=== PATIENT | female | born 1980 | race Caucasian/White ===

== ENCOUNTER 2016-07-10 17:04 | Emergency (ER) | payer OTHER ==
--- NOTE | ~2016-07-10 | EKG ---
PATIENT: AMANDA RODRÍGUEZ UNIT #: [id number] Ventricular Rate: 82 BPM Atrial Rate: 82 BPM P-R Interval: 156 ms QRS Duration: 82 ms Q-T Interval: 386 ms QTC Calculation(Bezet): 450 ms P [place]: 46 degrees Calculated R [place]: -20 degrees Calculated T [place]: 22 degrees Diagnosis Line: Normal sinus rhythm Diagnosis Line: Otherwise normal ECG Diagnosis Line: No significant change was found Diagnosis Line: Confirmed by QAMAR LAGOS MD ([id number]) on Diagnosis Line: 08/27/2016 4:03:57 PM INTERPRETING MD: [email or web address]
[~2016-07-10 17:04] MED LIST: ACETAMINOPHEN650 M1 PO; ALBUTEROL17 G1 IH; ALBUTEROL17 GM INH; ALLEGRA ALLERGY60 MG PO; AMOXICILLIN; AMOXICILLIN500 M1 PO; ATARAX PO; AUGMENTIN PO; AUGMENTIN875 MG PO; BACTRIM DS TABL1 TA1; BACTRIM DS TABL1 TA1 PO; BENADRYL PO; BENTYL20 MG PO; BENZONATATE; BENZONATATE PO; BUSPIRONE HCL10 MG PO; CIPRO PO; CLARITIN10 MG PO; COMBIVENT14.7 GM INH; CORTISPORIN-TC10 ML OT; DARVOCET-N 1001 TAB PO; DOXYCYCLINE PO; FIORICET 50-321 EACH PO; FIORICET1 TAB PO; FIORINAL 50-321 EACH PO; FLAGYL; FLEXERIL; FLEXERIL10 MG PO; FLONASE16 GM; IBUPROFEN PO; IBUPROFEN800 MG PO; KEFLEX PO; KEFLEX500 MG PO; KETOPROFEN PO; LORTAB 10-5001 EACH; LORTAB 101 TAB 10/5 PO; LORTAB 2.5/5001 TAB PO; LORTAB 5/500 TA1 TA1 PO; LORTAB 7.5-5001 TAB PO; MEDROL DOSEPAK4 MG PO; MEDROL4 MG/DOSE- PO; NAPROSYN-EC500 M1 PO; NAPROSYN500 MG PO; NASAL SPRAY30 M1; NEXIUM PO; NO MEDICATIONS; ORUDIS75 M1 PO; PERCOCET5/325 PO; PHENERGAN DM1 ML PO; PHENERGAN PO; PHENERGAN25 M1 PO; PHENERGAN25 MG PO; PRILOSEC; PRILOSEC PO; PROTONIX PO; REGLAN; REGLAN10 MG PO; ROBAXIN 750750 MG PO; ROBITUSSIN-DM118 M1 PO; TORADOL10 MG PO; TYLENOL #3 PO; ULTRAM PO; VALIUM10 MG; VIBRAMYCIN100 M1 PO; VICODIN 5/500 T1 TAB PO; VOLTAREN50 MG PO; VOLTAREN75 MG PO; ZANTAC150 M1 PO; ZOFRAN ODT4 MG PO; ZOFRAN ODT4 MG/UDTAB PO; ZOFRAN PO; ZYRTEC10 M1 PO; ZYRTEC10 M2 PO
[2016-07-10 18:00] LABS: BASOPHIL# 0.1 X10e3 (0-0.3); BASOPHIL% 1.1 % (0-2.5); EOSINOPHIL# 0.2 X10e3 (0-0.7); HEMATOCRIT 36.7 % (35.0-45.0); HEMOGLOBIN 12.5 gm/dL (12.0-16.0); LYMPHOCYTE# 2.7 X10e3 (1.0-3.5); LYMPHOCYTE% 38.3 % (17.0-45.0); MEAN CELL VOLUME 95.8 FL (83-96); MEAN CORPUSCULAR HEMOGLOBIN 32.6 PG (28-34); MEAN PLATELET VOLUME 8.3 FL (6.5-11.5); MONOCYTE# 0.4 X10e3 (0-1.0); MONOCYTE% 5.6 % (3.0-12.0); NEUTROPHIL# 3.7 X10e3 (1.5-7.1); PLATELET COUNT 225 X10e3 (140-420); RED BLOOD COUNT 3.83 X10e (3.90-5.30); RED CELL DISTRIBUTION WIDTH 14.2 % (11.0-15.5); WHITE BLOOD COUNT 7.1 X10e3 (4.0-10.5)
[2016-07-10 18:02] LABS: POC - CKMB <1.0 ng/mL (0.0-7.9); POC - MYOGLOBIN 73.3 ng/mL (0.0-169.0); POC - TROPONIN <0.05 ng/mL (<=0.05)
[2016-07-10 18:11] LABS: DIFF IND NO
[2016-07-10 18:26] LABS: ALBUMIN SERUM 4.1 g/dL (3.5-5.0); ALKALINE PHOSPHATASE 68 U/L (32-92); ALT (SGPT) 16 U/L (10-40); AST (SGOT) 19 U/L (10-42); BILIRUBIN, DIRECT 0.1 mg/dL (0.0-0.2); BILIRUBIN,INDIRECT 0.4 mg/dL (0.0-0.9); BILIRUBIN,TOTAL 0.5 mg/dL (0.2-2.0); BLOOD UREA NITROGEN 8 mg/dL (9-23); CALCIUM SERUM 9.5 mg/dL (8.4-10.2); CARBON DIOXIDE 27 mmol/L (22-31); CHLORIDE 106 mmol/L (100-111); CREATININE SERUM 0.8 mg/dL (0.6-1.4); GLOM FILT RATE Estimated ABOVE60 mL/min (>60); GLUCOSE FASTING 77 mg/dL (70-110); POTASSIUM 3.3 mmol/L (3.5-5.1); PROTEIN TOTAL SERUM 7.2 g/dL (6.0-8.3); SODIUM 141 mmol/L (135-145)
== END 2016-07-10 18:55 | disposition home or self-care (01) ==
LOC: SED 17:04
PROVIDERS: Emergency Medicine
DX: R07.89 Other chest pain (principal); M79.601 Pain in right arm; M54.12 Radiculopathy, cervical region; F17.200 Nicotine dependence, unspecified, uncomplicated; Z88.5 Allergy status to narcotic agent; Z88.6 Allergy status to analgesic agent; Z79.899 Other long term (current) drug therapy
CPT/HCPCS: 36415; 80048; 80076; 82553; 83874; 84484; 85025; 93005; 96374; 99284; J1885